=== PATIENT | male | born 1955 | race Caucasian/White ===

== ENCOUNTER → 2017-12-14 | Outpatient (CLI) | payer MEDICAID, MEDICARE ==
[~2017-12-14] MED LIST: ALPR0.5T72 PO; ASP81TEC PO; DOXY100C2 PO; ESCT10T PO; GADOBUTROL 10 MMOL/10 ML (GADAVIST) VIAL IV ONE; LISI20TA PO; OMEG1CAP51 PO; PROP1TAB77 PO
--- NOTE | 2017-12-14 14:39 | Diagnostic Imaging Report ---
PROCEDURE: MR imaging abdomen with and without contrast. TECHNIQUE: Multiplanar, multisequence MR imaging of the abdomen was performed with and without contrast. INDICATION: Abdominal pain, particularly when bending over. Study is somewhat compromised due to patient's respiratory motion. The liver is markedly heterogeneous. The liver does have a nodular contour suggestive of cirrhosis. There are numerous tiny circumscribed hypointensities throughout the liver parenchyma, too small to characterize. No dominant liver lesion is seen. There is no biliary ductal dilatation. The gallbladder is unremarkable. The pancreas and spleen are unremarkable. No adrenal mass is seen. Kidneys are unremarkable. There is large abdominal ascites. Bowel loops are unremarkable. Aorta is normal in caliber. IMPRESSION: Nodular liver suggestive of cirrhosis. There is a large abdominal ascites present as well, raising question of portal hypertension. No definite splenomegaly is seen at this time however. The liver does demonstrate numerous tiny hypointensities, too small to characterize. Conventional CT of the abdomen with and without intravenous contrast would be useful for further evaluation, a CT would be much less prone to motion artifact and perhaps further characterization can be performed. Dictated by: Dictated on workstation # [id number]
== END ==
LOC: RAD 10:00
PROVIDERS: ATTEND Internal Medicine
DX: K76.89 Other specified diseases of liver (principal); R18.8 Other ascites; R16.0 Hepatomegaly, not elsewhere classified
CPT/HCPCS: 74183

== ENCOUNTER 2018-01-04 09:51 | Outpatient (CLI) | payer MEDICARE ==
[~2018-01-04] VITALS: Ht 172.7 cm; Wt 96.2 kg
[~2018-01-04 09:51] MED LIST changes: -GADOBUTROL 10 MMOL/10 ML (GADAVIST) VIAL IV ONE
[2018-01-04] MEDS ORDERED: FURO-125 PO (12:25)
[2018-01-04] MEDS ORDERED: FURO-124 PO (12:25)
[2018-01-04] MEDS ORDERED: LISI40TA PO (12:25)
[2018-01-04] MEDS ORDERED: FLT22013 IH (12:25)
[2018-01-04] MEDS ORDERED: LEVO125T6 PO (12:25)
[2018-01-04] MEDS ORDERED: ALPR0.5T7 PO (12:25)
[2018-01-04] MEDS ORDERED: RT-ALBUINH IH (12:25)
[2018-01-04] MEDS ORDERED: MONT10TA24 PO (12:25)
== END 2018-01-04 12:30 | disposition home or self-care (01) ==
LOC: PREOP 09:51
PROVIDERS: ATTEND Surgery
DX: Z01.818 Encounter for other preprocedural examination (principal)

== ENCOUNTER 2018-01-10 08:10 | Day surgery (SDC) | payer MEDICARE, OTHER ==
[~2018-01-10] VITALS: Ht 172.7 cm; Wt 96.2 kg
[~2018-01-10 08:10] MED LIST changes: +ALPR0.5T7 PO; +FLT22013 IH; +FURO-124 PO; +FURO-125 PO; +LEVO125T6 PO; +LISI40TA PO; +MONT10TA24 PO; +RT-ALBUINH IH
[2018-01-10] MEDS ORDERED: LACTATED RINGERS 1,000 ML IV PRN (09:03)
[2018-01-10 09:48] VITALS: BP 108/70
[2018-01-10] MEDS ORDERED: ceFAZolin 2 GM IV Premixed 50 ML ONE (09:59)
[2018-01-10] MEDS ORDERED: 0.9% SODIUM CHLORIDE PF INJ 20 ML VIAL ONE (10:00)
[2018-01-10] MEDS ORDERED: LIDOCAINE/EPI 1%-1:200,000 (XYLOCAINE) 10 ML VIAL ONE (10:00)
[2018-01-10] MEDS ORDERED: HEParin (CENTRAL IV FLUSH) 500 UNIT/5 ML SYR ONE (10:00)
--- NOTE | 2018-01-10 12:00 | Progress Note-Pre Operative ---
Pre-Operative Progress Note H&P Reviewed The H&P was reviewed, patient examined and no changes noted. Time Seen by Provider: 11:58 Date H&P Reviewed: Jan 10, 2018 Time H&P Reviewed: 11:59 Pre-Operative Diagnosis: Venous insufficiency HORTENCIA MARSHALL DO Jan 10, 2018 12:00
[2018-01-10] MEDS ORDERED: PROPOFOL INJECTION 50 ML IV ONE (12:19)
[2018-01-10] MEDS ORDERED: fentaNYL INJECTION 100 MCG/2 ML AMP ONE (12:19)
[2018-01-10] MEDS ORDERED: MIDAZOLAM 2 MG/2 ML (VERSED) VIAL ONE (12:21)
--- NOTE | 2018-01-10 13:16 | Progress Note-Post Operative ---
Post-Operative Progess Note Surgeon (s)/Child Monitor (s) Surgeon HORTENCIA MARSHALL DO Child Monitor: Anatoliy Xiong MSIII Pre-Operative Diagnosis Venous insufficiency Post-Operative Diagnosis same Procedure & Operative Findings Date of Procedure 01/10/18 Procedure Performed/Findings Geena-cath placement Anesthesia Type IV sedation by DIRECT SALES PROFESSIONAL Estimated Blood Loss Estimated blood loss (mL): scant Specimens/Packing Specimens Removed None HORTENCIA MARSHALL DO Jan 10, 2018 13:16
[2018-01-10] MEDS ORDERED: ACHD5005 PO (13:17)
[2018-01-10] MEDS ORDERED: ONDANSETRON 4 MG/2 ML (SDV) Z0FRAN ONE (13:19)
--- NOTE | 2018-01-10 13:19 | Discharge Inst-Surgical ---
Discharge Inst-Surgical Depart Medication/Instructions New, Converted or Re-Newed RX: RX Given to Pt/Family Patient Instructions Follow up Appt: Make appointment for 1 week. Instructions: No strenuous activity. May shower in 24 hours, no tub bath or soaking. Use incentive spirometer at home as directed. No Smoking Skin/Wound Care: May remove bandages. You need to leave the Dermabond on over incision it will fall off on its own. Symptoms to Report: Appetite Changes, Extremity Discoloration, Numbness/Tingling, Swelling Increased , Bleeding Excessive, Eyesight Changes, Pain Increased, Urine Color Change, Constipation(Persistent), Fever over 101 degree F, Pain/Pressure in chest, Urinating Difficulty, Cough Up/Vomit Blood, Heart Beat Irreg/Pounding, Pain/ Pressure in jaw, Cramps in feet or legs, Lightheadedness, Pain/Pressure in shoulder, Diarrhea(Persistent), Memory Changes Suddenly, Questions/Concerns, Weight gain consecutive days, Dizziness/Fainting, Nausea/Vomiting, Shortness of Breath, Weight gain over 2 pounds If questions or concerns contact your physician Or seek help at emergency department. Activity Activity as Tolerated: Yes Activity Instructions: Avoid Stress to Incision Driving Instructions: No Driving/Refer to Diet Discharge Diet: No Restrictions Diet After 24 Hours: Clear Liquid if Nauseous If Any Problems/Questions/Issu: Contact Your Physician, Go to Emergency Room Skin/Wound Care Infection Signs and Symptoms: Increased Redness, Foul Odor of Wound, Increased Drainage, Skin Itchy or Has a Rash, Increased Swelling, Temperature Above 101 F Bathing Instructions: Shower Stitches/[place]/Dermabond Dis: Dermabond Ice Pack: Ice On and Off Site (as needed for pain) HORTENCIA MARSHALL DO Jan 10, 2018 13:19
[2018-01-10] MEDS ORDERED: ONDANSETRON 4 MG/2 ML (SDV) Z0FRAN IVP PRN (13:30)
[2018-01-10] MEDS ORDERED: morphine INJ 10 MG/ML 1ML (SYR OR VIAL) IVP ONE (13:30)
[2018-01-10] MEDS ORDERED: MEPERIDINE (DEMEROL) INJ 50 MG/ML IVP ONE (13:30)
[2018-01-10 13:55] VITALS: BP 90/46
[2018-01-10 14:25] VITALS: BP 111/76
--- NOTE | 2018-01-10 14:25 | Anesthesia-General Post-Op ---
MAC Patient Condition Mental Status/LOC: Same as Preop Cardiovascular: Satisfactory Nausea/Vomiting: Absent Respiratory: Satisfactory Pain: Controlled Complications: Absent Post Op Complications Complications None Follow Up Care/Instructions Patient Instructions None needed. Anesthesiology Discharge Order Discharge Order Patient is doing well, no complaints, stable vital signs, no apparent adverse anesthesia problems. No complications reported per nursing. CELESTE GILLIAM CRNA Jan 10, 2018 14:25
[2018-01-10 14:50] VITALS: BP 111/76
--- NOTE | 2018-01-10 15:20 | Diagnostic Imaging Report ---
INDICATION: Fluoroscopy for PowerPort placement. TIME OF EXAM: 1:06 p.m. EXAMINATION: Fluoroscopy was provided in the OR during PowerPort insertion. FINDINGS: 5 seconds of fluoroscopy was utilized. A single image demonstrates a right chest wall port. IMPRESSION: Fluoroscopy during power port insertion. Dictated by: Dictated on workstation # [id number]
--- NOTE | 2018-01-11 19:25 | OPERATIVE REPORT ---
DATE OF SERVICE: 01/10/2018 PREOPERATIVE DIAGNOSIS: Venous insufficiency. POSTOPERATIVE DIAGNOSIS: Venous insufficiency. PROCEDURE PERFORMED: Port-A-Cath placement. SURGEON: Timmy Marshall DO. TAKE OUT WAITER/WAITRESS: Dmitri Rodriguez MS3. SPECIMENS: None. BLOOD LOSS: Scant. FLUIDS: Per Anesthesia. POSTOPERATIVE CONDITION: Stable. INDICATION FOR PROCEDURE: The patient is a 62-year-old male who has a [facility] need for IV treatments and they are having trouble cannot get a vein, keep blowing and he has venous insufficiency and needs a placement of a port for access. FINDINGS: The patient had a port placed in the right anterior chest wall, right subclavian vein. PROCEDURE NOTE: After informed consent was obtained, the patient was brought to the operating room, placed on the table in supine position. He was sterilely prepped and draped in normal fashion. Local lidocaine was used to infiltrate the skin of the right anterior chest wall towards the right clavicle and then to an area that would be used to create a pocket. He was placed slightly Trendelenburg and then advance to 18 gauge fine needle with negative inspiration and cannulated the subclavian vein on the second attempt. Good flash of blood, removed the syringe, placed a guidewire using Seldinger technique, it went in easily, removed the needle and then checked with fluoroscopy and the wire was in good position. At this point, I then made a stab incision along the wire with #11 blade and then on the right anterior chest wall, I made an incision with #11 blade to create a pocket, carried down through the skin into subcutaneous tissue, then deepened down to subcutaneous tissue with Bovie electrocautery, down to the fascia of the pectoralis muscle. Then, over the guidewire, placed a dilator using Seldinger technique, it went in easily, checked fluoroscopy, it was in good position. I tunneled the catheter from the stab incision into the pocket and then removed the inner portion of the dilator sheath as well as the guidewire. I placed the catheter down the sheath using the Seldinger technique, it went in easily, checked with fluoroscopy, it was in good position. I removed the outer portion of the dilator and then placed a 3-0 Prolene suture at the pectoralis major fascia, attached to the port and then attached the port to the catheter, cut off on the non-used portion of the catheter and attached it to the catheter to the port with a locking mechanism. I then placed a Haynes needle into the port and aspirated, got a good flash of blood, then easily flushed with saline. Then switched to heparin flush, aspirated and flushed with 2 mL of the heparin flush. I placed the port into the pocket and sutured this in place with a previously placed 3-0 Prolene, then checked the position with fluoroscopy. There were no kinks and the catheter looked good and at this point, I then closed the subcutaneous tissue with 3-0 Vicryl 3 interrupted sutures and then closed the stab incision closing the skin with 4-0 undyed Monocryl in a simple subcuticular stitch and then closed the incision at the right anterior chest wall with 3 interrupted 4-0 undyed Monocryl subcuticular stitches. Area was cleaned and dried. Dermabond placed as well as bandage. The patient was then transferred to recovery room in stable condition. Sponge, instrument and needle counts correct at the end of the case. Job ID: [id number] DocumentID: [id number] Dictated Date: 01/11/2018 10:43:22 Lift Team Technician Date: 01/11/2018 19:24:30 Dictated By: TIMMY MARSHALL DO
== END 2018-01-10 14:50 | disposition home or self-care (01) ==
LOC: SDC 08:10
PROVIDERS: ATTEND Surgery
DX: I87.2 Venous insufficiency (chronic) (peripheral) (principal); E03.9 Hypothyroidism, unspecified; I10 Essential (primary) hypertension; F41.9 Anxiety disorder, unspecified; J44.9 Chronic obstructive pulmonary disease, unspecified; F32.9 Major depressive disorder, single episode, unspecified; E66.9 Obesity, unspecified; K74.60 Unspecified cirrhosis of liver; Z68.32 Body mass index [BMI] 32.0-32.9, adult
CPT/HCPCS: 87081

== ENCOUNTER → 2018-01-22 | Outpatient (CLI) | payer MEDICARE ==
[~2018-01-22] MED LIST changes: +ACHD5005 PO; +IOHEXOL 350 MG/ML 100 ML (OMNIPAQUE 350) VIAL IV ONE; +NS 250 ML (IVPB) BAG IV ONE; +RECEIVED CONTRAST (Hold Metformin) IV SCH
[2018-01-22 12:36] LABS: BASOPHILS # (AUTO) 0.1 10^3/uL (0.0-0.1); BASOPHILS % (AUTO) 1 % (0-10); EOSINOPHILS # (AUTO) 0.3 10^3/uL (0.0-0.3); EOSINOPHILS % (AUTO) 5 % (0-10); HEMATOCRIT 38 % (40-54); HEMOGLOBIN 13.6 G/DL (13.3-17.7); LYMPHOCYTES # (AUTO) 0.9 X 10^3 (1.0-4.0); LYMPHOCYTES % (AUTO) 14 % (12-44); MEAN CORPUSCULAR HEMOGLOBIN 35 PG (25-34); MEAN CORPUSCULAR HGB CONC 36 G/DL (32-36); MEAN CORPUSCULAR VOLUME 98 FL (80-99); MEAN PLATELET VOLUME 10.4 FL (7.4-10.4); MONOCYTES # (AUTO) 1.3 X 10^3 (0.0-1.0); MONOCYTES % (AUTO) 20 % (0-12); NEUTROPHILS % (AUTO) 60 % (42-75); PLATELET COUNT 116 10^3/uL (130-400); RED BLOOD COUNT 3.88 10^6/uL (4.35-5.85); WHITE BLOOD COUNT 6.6 10^3/uL (4.3-11.0)
[2018-01-22 12:48] LABS: AMMONIA 40 UMOL/L (11-32)
[2018-01-22 12:49] LABS: INR 1.4 (0.8-1.4); PROTHROMBIN TIME PATIENT 16.8 SEC (12.2-14.7)
[2018-01-22 13:06] LABS: BAND NEUTROPHILS 3 %; BASOPHILS % (MANUAL) 0 %; EOSINOPHILS % (MANUAL) 6 %; LYMPHOCYTES % (MANUAL) 11 %; MONOCYTES % (MANUAL) 13 %; NEUTROPHILS % (MANUAL) 67 %; RBC MORPH NORMAL
--- NOTE | 2018-01-22 14:19 | Diagnostic Imaging Report ---
PROCEDURE: CT abdomen with and without contrast. TECHNIQUE: Multiple contiguous axial CT images of the abdomen were obtained prior to and after intravenous administration of iodinated contrast. INDICATION: Abnormal MRI of the abdomen study from one month earlier demonstrating questionable multiple liver lesions. The study is performed for further evaluation. Liver protocol was utilized including noncontrast as well as arterial phase, portal venous phase and delayed imaging. COMPARISON: Comparison is made with MRI of the abdomen from 12/14/2017. FINDINGS: The lung bases are clear. The liver again demonstrates nodular contour consistent with cirrhosis. Several tiny low densities in the right and left lobes are again noted, similar to MRI which are too small to characterize. These are only several millimeters in size. There is an area of questionable hyperenhancement in the left lobe measuring approximately 13 mm in size on the arterial phase study. This is not visualized on portal venous or delayed imaging. This is indeterminate. No other liver masses are seen. No biliary duct dilatation is seen. There is some mild dilatation of the gallbladder. Pancreas and spleen are unremarkable. No adrenal mass. Kidneys are unremarkable. Aorta and iliac vessels are heavily calcified but nonaneurysmal. Large abdominal ascites is again noted and similar to MRI. Bony structures are nonacute. IMPRESSION: 1. Large abdominal ascites. 2. Nodular liver suggestive of cirrhosis. Tiny subcentimeter low densities in both lobes are present which are too small to characterize. There is a 13 mm region of hyperenhancement in the left lobe, only seen on arterial phase imaging and indeterminate. This is not well seen on the previous MRI. Continued CT followup with repeat study in three months recommended to confirm stability. Dictated by: Dictated on workstation # [id number]
== END ==
LOC: RAD 11:33
PROVIDERS: ATTEND Pediatrics
DX: B18.2 Chronic viral hepatitis C (principal); K74.69 Other cirrhosis of liver; R18.8 Other ascites; R16.0 Hepatomegaly, not elsewhere classified
CPT/HCPCS: 36415; 74170; 80320; 82105; 82140; 85007; 85027; 85610; 87522; 87902

== ENCOUNTER 2018-02-10 14:40 | Inpatient (IN) | payer MEDICARE ==
[2018-02-10] VITALS (9 sets, daily range): BP systolic 102–128; BP diastolic 47–74
[~2018-02-10] VITALS: Ht 170.2 cm; Wt 100.8 kg
[~2018-02-10 14:40] MED LIST changes: -IOHEXOL 350 MG/ML 100 ML (OMNIPAQUE 350) VIAL IV ONE; -NS 250 ML (IVPB) BAG IV ONE; -RECEIVED CONTRAST (Hold Metformin) IV SCH
[2018-02-10] MEDS ORDERED: SPIR100T4 (16:29)
[2018-02-10] MEDS ORDERED: fentaNYL INJECTION 100 MCG/2 ML AMP IVP ONE ×2 (16:45→17:30)
[2018-02-10] MEDS ORDERED: ONDANSETRON 4 MG/2 ML (SDV) Z0FRAN IVP ONE (16:45)
--- NOTE | 2018-02-10 16:49 | ED General ---
General Chief Complaint: General Problems/Pain Stated Complaint: THROWING UP BLOOD,PORT IN CHEST Nursing Triage Note: PT PRESENTS TO ER WITH COMPLAINT BLOOD IN STOOL, VOMITING BLOOD, ABD PAIN, AND SWELLING IN ABD AND LEGS. STATES SWELLING STARTED AFTER THANKSGIVING. PT HAS HX OF HEP C AND VOCAL CORD CANCER. Nursing Sepsis Screen: No Definite Risk Source of Information: Patient, Family Exam Limitations: No Limitations History of Present Illness Date Seen by Provider: Feb 10, 2018 Time Seen by Provider: 16:44 Initial Comments This 62 year old white female presents with a GI bleed. Patient has hepatitis C and ascites. In addition the patient has had a laryngectomy with secondary stoma. The patient denies fever or chills. He is having persistent generalized abdominal pain and nausea. Patient's ascites and peripheral edema have been increasing for the past 10 days. Allergies and Home Medications Allergies Coded Allergies: Penicillins (Unverified Allergy, Unknown, 12/14/17) ciprofloxacin (Unverified Allergy, Unknown, ITCHING, 12/14/17) clopidogrel (Unverified Allergy, Unknown, HOT FLASHES, 12/14/17) codeine (Unverified Allergy, Unknown, Has received Morphine w/o issue, 01/10/18) paroxetine (Unverified Allergy, Unknown, HOT FLASHES, 12/14/17) Uncoded Allergies: METALS (Allergy, Unknown, SWELLING, HIVES, ITHCHING, 12/14/17) Home Medications Albuterol Sulfate 1 Puff Puff, 2 PUFF IH Q6H PRN for SHORTNESS OF BREATH, ( Reported) 1 PUFF = 90 MCG Alprazolam 0.5 Mg Tablet, 0.5 MG PO TID PRN for ANXIETY, (Reported) Fluticasone Propionate 1 Ea Aero, 2 PUFF IH BID, (Reported) Furosemide 20 Mg Tablet, 20 MG PO DAILY PRN for edema, (Reported) Furosemide 40 Mg Tablet, 40 MG PO BID, (Reported) Hydrocodone Bit/Acetaminophen 1 Tab Tab, 1 TAB PO Q6H PRN for PAIN-MODERATE Prescribed by: HORTENCIA MARSHALL on 01/10/18 1317 Levothyroxine Sodium 125 Mcg Tablet, 125 MCG PO DAILY, (Reported) Lisinopril 40 Mg Tablet, 40 MG PO DAILY, (Reported) Montelukast Sodium 10 Mg Tablet, 10 MG PO HS, (Reported) Patient Home Medication List Home Medication List Reviewed: Yes Review of Systems Review of Systems Constitutional: No chills, No fever EENTM: No hearing loss, No double vision Respiratory: No cough; short of breath Cardiovascular: No chest pain Gastrointestinal: abdominal pain, loss of appetite, nausea, vomiting Genitourinary: No dysuria, No frequency Musculoskeletal: No back pain Skin: No rash; other (ecchymosis) Psychiatric/Neurological: No Symptoms Reported Hematologic/Lymphatic: Easy Bleeding, Easy Bruising Immunological/Allergic: no symptoms reported Past Oujgqvl-Uosrng-Olasff Hx Past Med/Social Hx: Reviewed Nursing Past Med/Soc Hx Patient Social History Alcohol Use: Past History Recreational Drug Use: No Smoking Status: Current Everyday Smoker Type Used: Cigarettes Recent Foreign Travel: No Contact w/Someone Who Travel: No Recent Infectious Disease Expo: No Recent Hopitalizations: No Seasonal Allergies Seasonal Allergies: No Past Medical History Surgeries: Yes (laryngectomy, teeth removed, R leg fx x2, PORT) Tonsillectomy Respiratory: No Cardiac: Yes Hypertension Neurological: No Reproductive Disorders: No Sexually Transmitted Disease: No Gastrointestinal: Yes Abdominal Hernia, Cirrhosis Musculoskeletal: Yes Arthritis Endocrine: Yes Hypothyroidsim Cancer: Yes (vocal cord) What Type of Treatment Did You: Radiation, Surgical Intervention Psychosocial: Yes Anxiety Integumentary: No Blood Disorders: No Physical Exam Vital Signs Vital Signs - First Documented 02/10/18 15:49 Temp 96.8 Pulse 85 Resp 18 B/P (MAP) 136/60 (85) Pulse Ox 96 O2 Delivery Room Air Capillary Refill : Less Than 3 Seconds Height, Weight, BMI Height: 5'8.00" Weight: 212lbs. 0.0oz. 96.608830qo; 32.2 BMI Method:Stated General Appearance: Cachetic, Mild Distress HEENT: Other (there is a stoma present in the patient's neck) Neck: Non Tender Respiratory: Decreased Breath Sounds Cardiovascular: Regular Rate, Rhythm Gastrointestinal: Abnormal Bowel Sounds (decreased bowel sounds are noted throughout.), Distended, Guarding, Tenderness (there is diffuse tenderness palpation the abdomen) Extremity: Normal Range of Motion Neurologic/Psychiatric: Alert, No Motor/Sensory Deficits Progress/Results/Core Measures Suspected Sepsis Recent Fever Within 48 Hours: No Infection Criteria Present: None New/Unexplained Altered Menta: No Sepsis Screen: No Definite Risk SIRS Temperature:96.8 Pulse: 85 Respiratory Rate: 18 Laboratory Tests 02/10/18 16:15: White Blood Count 21.8H Blood Pressure 136 /60 Mean: 85 Laboratory Tests 02/10/18 16:15: INR Comment 2.1H, Platelet Count 217 02/10/18 16:42: Creatinine 2.42H, Total Bilirubin 3.8H Results/Orders Lab Results Laboratory Tests Test 02/10/18 16:15 02/10/18 16:42 Range/Units White Blood Count 21.8 H 4.3-11.0 10^3/uL Red Blood Count 3.14 L 4.35-5.85 10^6/uL Hemoglobin 10.9 L 13.3-17.7 G/DL Hematocrit 32 L 40-54 % Mean Corpuscular Volume 103 H 80-99 FL Mean Corpuscular Hemoglobin 35 H 25-34 PG Mean Corpuscular Hemoglobin Concent 34 32-36 G/DL Red Cell Distribution Width 16.3 H 10.0-14.5 % Platelet Count 217 130-400 10^3/uL Mean Platelet Volume 10.9 H 7.4-10.4 FL Neutrophils (%) (Auto) 77 H 42-75 % Lymphocytes (%) (Auto) 7 L 12-44 % Monocytes (%) (Auto) 16 H 0-12 % Eosinophils (%) (Auto) 0 0-10 % Basophils (%) (Auto) 0 0-10 % Neutrophils # (Auto) 16.8 H 1.8-7.8 X 10^3 Lymphocytes # (Auto) 1.4 1.0-4.0 X 10^3 Monocytes # (Auto) 3.5 H 0.0-1.0 X 10^3 Eosinophils # (Auto) 0.1 0.0-0.3 10^3/uL Basophils # (Auto) 0.1 0.0-0.1 10^3/uL Neutrophils % (Manual) 80 % Lymphocytes % (Manual) 4 % Monocytes % (Manual) 10 % Eosinophils % (Manual) 0 % Basophils % (Manual) 0 % Band Neutrophils 6 % Anisocytosis SLIGHT Macrocytosis SLIGHT Prothrombin Time 23.5 H 12.2-14.7 SEC INR Comment 2.1 H 0.8-1.4 Sodium Level 130 L 135-145 MMOL/L Potassium Level 6.2 H 3.6-5.0 MMOL/L Chloride Level 93 L 98-107 MMOL/L Carbon Dioxide Level 16 L 21-32 MMOL/L Anion Gap 21 H 5-14 MMOL/L Blood Urea Nitrogen 92 H 7-18 MG/DL Creatinine 2.42 H 0.60-1.30 MG/DL Estimat Glomerular Filtration Rate 27 BUN/Creatinine Ratio 38 Glucose Level 131 H 70-105 MG/DL Calcium Level 7.9 L 8.5-10.1 MG/DL Corrected Calcium 9.3 8.5-10.1 MG/DL Total Bilirubin 3.8 H 0.1-1.0 MG/DL Aspartate Amino Transf (AST/SGOT) 119 H 5-34 U/L Alanine Aminotransferase (ALT/SGPT) 81 H 0-55 U/L Alkaline Phosphatase 127 40-136 U/L Ammonia 78 H 11-32 UMOL/L Total Protein 5.5 L 6.4-8.2 GM/DL Albumin 2.2 L 3.2-4.5 GM/DL Lipase 90 H 8-78 U/L My Orders Orders - JAVAN FLAHERTY MD Cbc With Automated Diff (02/10/18 16:38) Ammonia (02/10/18 16:38) Comprehensive Metabolic Panel (02/10/18 16:38) Lipase (02/10/18 16:38) Ua Culture If Indicated (02/10/18 16:38) Protime With Inr (02/10/18 16:38) Type And Screen (02/10/18 16:38) Ns Iv 1000 Ml (Sodium Chloride 0.9%) (02/10/18 16:45) Ondansetron Injection (Zofran Injectio (02/10/18 16:45) Fentanyl Injection (Sublimaze Injection (02/10/18 16:45) Manual Differential (02/10/18 16:15) Fentanyl Injection (Sublimaze Injection (02/10/18 17:30) Medications Given in ED Current Medications Medications Dose Ordered Sig/Wilmer Route Start Time Stop Time Status Last Admin Dose Admin Fentanyl Citrate 50 mcg ONCE ONCE IVP 02/10/18 16:45 02/10/18 16:46 DC 02/10/18 16:53 50 MCG Ondansetron HCl 4 mg ONCE ONCE IVP 02/10/18 16:45 02/10/18 16:46 DC 02/10/18 16:53 4 MG Vital Signs/I&O 02/10/18 15:49 Temp 96.8 Pulse 85 Resp 18 B/P (MAP) 136/60 (85) Pulse Ox 96 O2 Delivery Room Air Capillary Refill : Less Than 3 Seconds Blood Pressure Mean: 85 Progress Note : Time: 17:58 Progress Note The patient's laboratory evaluation demonstrated a prolonged pro time and INR. Patient's ammonia level was in the mid 70s. His white count 21,000. His Hemoccult was 10 g. Next Telephone consultation with the patient was admitted to the ICU. We discussed fluids and treatment for the patient. I initiated lactulose and will continue his normal saline at 100 cc an hour. Departure Communication (Admissions) Time/Spoke to Admitting Phy: 17:59 Dr. Swenson Impression Primary Impression: Liver failure Qualified Codes: K72.00 - Acute and subacute hepatic failure without coma Additional Impressions: Ascites Qualified Codes: R18.8 - Other ascites GI bleed Qualified Codes: K92.0 - Hematemesis Disposition: ADMITTED INPATIENT Condition: Improved Admissions Decision to Admit Reason: Admit from ER (General) Decision to Admit/Date: Feb 10, 2018 Time/Decision to Admit Time: 18:00 Departure-Patient Inst. Referrals: LANRE REHMAN MD (PCP/Family) Primary Care Physician JAVAN FLAHERTY MD Feb 10, 2018 16:49
[2018-02-10 16:51] LABS: BASOPHILS # (AUTO) 0.1 10^3/uL (0.0-0.1); BASOPHILS % (AUTO) 0 % (0-10); EOSINOPHILS # (AUTO) 0.1 10^3/uL (0.0-0.3); EOSINOPHILS % (AUTO) 0 % (0-10); HEMATOCRIT 32 % (40-54); HEMOGLOBIN 10.9 G/DL (13.3-17.7); LYMPHOCYTES # (AUTO) 1.4 X 10^3 (1.0-4.0); LYMPHOCYTES % (AUTO) 7 % (12-44); MEAN CORPUSCULAR HEMOGLOBIN 35 PG (25-34); MEAN CORPUSCULAR HGB CONC 34 G/DL (32-36); MEAN CORPUSCULAR VOLUME 103 FL (80-99); MEAN PLATELET VOLUME 10.9 FL (7.4-10.4); MONOCYTES # (AUTO) 3.5 X 10^3 (0.0-1.0); MONOCYTES % (AUTO) 16 % (0-12); NEUTROPHILS # (AUTO) 16.8 X 10^3 (1.8-7.8); NEUTROPHILS % (AUTO) 77 % (42-75); PLATELET COUNT 217 10^3/uL (130-400); RED BLOOD COUNT 3.14 10^6/uL (4.35-5.85); RED CELL DISTRIBUTION WIDTH 16.3 % (10.0-14.5); WHITE BLOOD COUNT 21.8 10^3/uL (4.3-11.0)
[2018-02-10] MEDS: NS IV 1000 ML 1,000 ML IV SCH ×2 (16:53→19:48)
[2018-02-10 16:59] LABS: INR 2.1 (0.8-1.4); PROTHROMBIN TIME PATIENT 23.5 SEC (12.2-14.7)
[2018-02-10 17:18] LABS: ANISOCYTOSIS SLIGHT; BAND NEUTROPHILS 6 %; BASOPHILS % (MANUAL) 0 %; EOSINOPHILS % (MANUAL) 0 %; LYMPHOCYTES % (MANUAL) 4 %; MONOCYTES % (MANUAL) 10 %; NEUTROPHILS % (MANUAL) 80 %
[2018-02-10 17:22] LABS: ALBUMIN 2.2 GM/DL (3.2-4.5); BILIRUBIN,TOTAL 3.8 MG/DL (0.1-1.0); CALCIUM 7.9 MG/DL (8.5-10.1); CREATININE SERUM 2.42 MG/DL (0.60-1.30); POTASSIUM 6.2 MMOL/L (3.6-5.0); TOTAL PROTEIN 5.5 GM/DL (6.4-8.2)
[2018-02-10] MEDS ORDERED: MEROPENEM 500 MG VIAL (MERREM) IV ONE (19:41)
[2018-02-10] MEDS ORDERED: NS (IVPB) 100 ML ONE (19:42)
[2018-02-10] MEDS ORDERED: fentaNYL INJECTION 100 MCG/2 ML AMP ONE (19:56)
[2018-02-10] MEDS ORDERED: fentaNYL INJECTION 100 MCG/2 ML AMP IVP PRN (20:00)
[2018-02-10] MEDS ORDERED: ONDANSETRON 4 MG/2 ML (SDV) Z0FRAN ONE (20:02)
[2018-02-10] MEDS ORDERED: ONDANSETRON 4 MG/2 ML (SDV) Z0FRAN IVP PRN (20:15)
[2018-02-10] MEDS ORDERED: NS IV 1000 ML 1,000 ML IV SCH (21:15)
[2018-02-10] MEDS: LACTULOSE SYRUP 10GM/15ML (ENULOSE) 30ML UDC PO SCH ×2 (21:24→23:56)
[2018-02-10] MEDS ORDERED: ALPRAZolam 0.5 MG (XANAX) TAB PO PRN (23:15)
[2018-02-10] MEDS ORDERED: RT-ALBUTEROL SULF 2.5 MG/3 ML PRE-MIX VIAL IH PRN (23:45)
[2018-02-11] VITALS (18 sets, daily range): BP systolic 46–117; BP diastolic 20–59
[2018-02-11] MEDS: LACTULOSE SYRUP 10GM/15ML (ENULOSE) 30ML UDC PO SCH ×3 (01:57→06:01)
[2018-02-11] MEDS ORDERED: ALBUMIN 5% 12.5 GM/250 ML 500 ML IV ONE (03:49)
[2018-02-11] MEDS ORDERED: MEROPENEM 1,000 MG in NS (IVPB) 100 ML IV SCH (04:00)
[2018-02-11] MEDS ORDERED: morphine INJ 4 MG/ML 1 ML (VIAL/SYRINGE) ONE (04:07)
[2018-02-11] MEDS ORDERED: morphine INJ 4 MG/ML 1 ML (VIAL/SYRINGE) IV ONE (04:30)
[2018-02-11] MEDS ORDERED: ALBUMIN 5% 12.5 GM/250 ML 250 ML IV SCH ×2 (04:30→07:00)
[2018-02-11] MEDS ORDERED: MEROPENEM 500 MG VIAL (MERREM) IV ONE (05:46)
[2018-02-11] MEDS ORDERED: NS (IVPB) 100 ML ONE (05:46)
[2018-02-11] MEDS ORDERED: KCL 20 MEQ TAB (K-DUR) PO SCH (06:00)
[2018-02-11] MEDS ORDERED: POTASSIUM CL 10MEQ/50ML IVPB 50 ML IV SCH (06:00)
[2018-02-11] MEDS ORDERED: MAGNESIUM 1 GM/100 ML IVPB 100 ML IV SCH (06:00)
--- NOTE | 2018-02-11 07:45 | Diagnostic Imaging Report ---
INDICATION: Cough. COMPARISON: 01/31/2010. FINDINGS: Right subclavian Port-A-Cath has tip terminating in the lower SVC. Left basilar opacities are present but suboptimally evaluated on portable radiography. No pleural effusion or pneumothorax. Heart is normal in size. IMPRESSION: Left basilar pulmonary opacities may represent a small amount of atelectasis. Dictated by: Dictated on workstation # [id number]
[2018-02-11] MEDS ORDERED: RT-ALBUTEROL SULF 2.5 MG/3 ML PRE-MIX VIAL INH SCH (08:00)
[2018-02-11] MEDS ORDERED: ALPRAZolam 0.5 MG (XANAX) TAB PO SCH (09:00)
[2018-02-11] MEDS ORDERED: MEROPENEM 500 MG in NS (IVPB) 100 ML IV SCH (14:00)
--- NOTE | 2018-02-21 08:06 | Short Stay Summary ---
History of Present Illness History of Present Illness Reason for visit/HPI 62-year-old male who was admitted through the emergency department during the evening of February 10, 2018 following hematemesis. Patient has known hepatitis C along with history of liver failure. Patient has had a laryngectomy due to cancer and has a stoma. On admission he was with generalized abdominal pain and nausea. Over the past week and a half he has had increasing abdominal girth as well as peripheral edema. The lower extremities. Date of Admission Feb 10, 2018 at 17:50 Date of Discharge Feb 11, 2018 at 09:30 Time Seen by Provider: 05:00 Attending Physician Jackie Alvarez MD Admitting Physician Musa Hutchinson MD Consult Allergies and Home Medications Allergies Coded Allergies: Penicillins (Unverified Allergy, Unknown, 12/14/17) ciprofloxacin (Unverified Allergy, Unknown, ITCHING, 12/14/17) clopidogrel (Unverified Allergy, Unknown, HOT FLASHES, 12/14/17) codeine (Unverified Allergy, Unknown, Has received Morphine w/o issue, 01/10/18) paroxetine (Unverified Allergy, Unknown, HOT FLASHES, 12/14/17) Uncoded Allergies: METALS (Allergy, Unknown, SWELLING, HIVES, ITHCHING, 12/14/17) Home Medications Albuterol Sulfate 1 Puff Puff, 2 PUFF IH Q6H PRN for SHORTNESS OF BREATH, ( Reported) 1 PUFF = 90 MCG Alprazolam 0.5 Mg Tablet, 0.5 MG PO TID PRN for ANXIETY, (Reported) Fluticasone Propionate 1 Ea Aero, 2 PUFF IH BID, (Reported) Furosemide 20 Mg Tablet, 20 MG PO DAILY PRN for edema, (Reported) Furosemide 40 Mg Tablet, 40 MG PO BID, (Reported) Hydrocodone Bit/Acetaminophen 1 Tab Tab, 1 TAB PO Q6H PRN for PAIN-MODERATE Prescribed by: HORTENCIA MARSHALL on 01/10/18 1317 Levothyroxine Sodium 125 Mcg Tablet, 125 MCG PO DAILY, (Reported) Lisinopril 40 Mg Tablet, 40 MG PO DAILY, (Reported) Montelukast Sodium 10 Mg Tablet, 10 MG PO HS, (Reported) Patient Home Medication List Home Medication List Reviewed: Yes Past Npasfrm-Guzzme-Eoszkc Hx Patient Social History Alcohol Use: Past History Recreational Drug Use: No Smoking Status: Current Someday Smoker Type Used: Cigarettes Physical Abuse Screen: No Sexual Abuse: No Recent Foreign Travel: No Contact w/other who traveled: No Recent Hopitalizations: No Recent Infectious Disease Expo: No Immunizations Up To Date Date of Influenza Vaccine: Dec 24, 2017 Seasonal Allergies Seasonal Allergies: No Surgeries Yes (laryngectomy, teeth removed, R leg fx x2, PORT) Tonsillectomy Respiratory No Cardiovascular Yes Hypertension Neurological No Reproductive System Hx Reproductive Disorders: No Sexually Transmitted Disease: No Genitourinary Benign Prostatic Hyperpl Gastrointestinal Yes Abdominal Hernia, Cirrhosis Musculoskeletal Yes Arthritis Endocrine History of Endocrine Disorders: Yes Endocrine Disorders: Hypothyroidsim HEENT History of HEENT Disorders: No Loss of Vision: Denies Cancer Yes (vocal cord) Did You Recieve Any Treatments: No Type of Treatment: Radiation, Surgical Intervention Psychosocial History of Psychiatric Problem: Yes Behavioral Health Disorders: Anxiety Integumentary History of Skin or Integumenta: No Blood Transfusions History of Blood Disorders: No Review of Systems Constitutional: see HPI Physical Exam Vital Signs Capillary Refill : Less Than 3 Seconds Height, Weight, BMI Height: 5'7.00" Weight: 222lbs. 3.0oz. 100.965320sd; 34.8 BMI Method:Stated General Appearance: Chronically ill Clinical Quality Measures DVT/VTE Risk/Contraindication: Risk Factor Score Per Nursin RFS Level Per Nursing on Admit: 4+=Very High Short Stay Diagnosis Discharge Diagnosis-Short Stay Admission Diagnosis: 1. Liver failure 2. Ascites 3. GI bleed Final Discharge Diagnosis: 1. Liver failure 2. Ascites 3. GI bleed Conclusion Labs Microbiology 02/10/18 MRSA Screen - Final, Complete MRSA not isolated Conclusion/Plan Patient as admitted for IV fluids initially. His condition deteriorated and his family requested comfort care only. EICU had gave patient IV fluids during the early a.m. Patient was being treated with lactulose for the liver failure and ascites. With comfort care opted by the family orders were given at 05 100. Patient at 07 45 with family at bedside. PLACIDO BOOTH MD Feb 21, 2018 08:06
== END 2018-02-11 09:30 | disposition expired | DRG 377 ==
LOC: EDUNIT# 14:40 → ER 14:41 → ICU 17:50
PROVIDERS: ADMIT Family Medicine; ATTEND Family Medicine
DX: K92.0 Hematemesis (principal); K72.00 Acute and subacute hepatic failure without coma; R18.8 Other ascites; K74.60 Unspecified cirrhosis of liver; B19.20 Unspecified viral hepatitis C without hepatic coma; Z90.02 Acquired absence of larynx; F17.210 Nicotine dependence, cigarettes, uncomplicated; Z66 Do not resuscitate; Z51.5 Encounter for palliative care; E03.9 Hypothyroidism, unspecified; F41.9 Anxiety disorder, unspecified; I10 Essential (primary) hypertension; N40.0 Benign prostatic hyperplasia without lower urinary tract symptoms; Z85.21 Personal history of malignant neoplasm of larynx
CPT/HCPCS: 36415; 71045; 80053; 82140; 83690; 85007; 85027; 85610; 86850; 86900; 86901; 87081; 96361; 96374; 96375; 96376